=== PATIENT | female | born 1980 | race Two or more races ===

== ENCOUNTER 2019-04-11 22:23 | Emergency (ER) | payer SELFPAY ==
[2019-04-11 22:30] VITALS: RESP 18
[2019-04-12 00:18] LABS: BASO # 0.02 K/mm3 (0.0-2.0); BASO % 0.2 % (0.0-3.0); EOS # 0.2 (0.0-0.7); EOS % 1.3 % (1.5-5.0); HEMOGLOBIN 13.2 g/dL (12.0-16.0); LYMPH # 2.6 (1.2-3.4); LYMPH % 22.3 % (22.0-35.0); MEAN CORPUSCULAR HEMOGLOBIN 27.9 pg (25.0-35.0); MEAN PLATELET VOLUME 10.3 fl (7.0-11.0); MONO # 0.4 (0.1-0.6); MONO % 3.1 % (1.0-6.0); RBC 4.73 10^6/uL (3.5-6.1); RED CELL DISTRIBUTION WIDTH 15.3 % (11.5-14.5); WHITE BLOOD COUNT 11.7 10^3/uL (4.5-11.0)
[2019-04-12 00:18] LABS: PH,URINE 6.5 (4.7-8.0); URINE BILIRUBIN NEGATIVE (NEGATIVE); URINE BLOOD NEGATIVE (NEGATIVE); URINE GLUCOSE (UA) 250 mg/dL (NEGATIVE); URINE LEUKOCYTE ESTERASE MODERATE Leu/uL (NEGATIVE); URINE PROTEIN NEGATIVE mg/dL (<30 mg/dL); URINE UROBILINOGEN 0.2 E.U./dL (<1 E.U./dL)
[2019-04-12 00:20] LABS: URINE APPEARANCE SL CLOUDY (CLEAR); URINE COLOR STRAW (YELLOW)
[2019-04-12 00:29] LABS: ACETAMINOPHEN < 10.0 ug/ml (10.0-20.0); SALICYLATE < 1 mg/dL (2.0-20.0)
[2019-04-12 00:31] LABS: ALB/GLOB RATIO 1.3 (1.1-1.8); ALBUMIN 4.2 g/dL (3.0-4.8); ALT/SGPT 29 U/L (7-56); AST/SGOT 19 U/L (14-36); BLOOD UREA NITROGEN 12 mg/dL (7-21); CALCIUM 9.4 mg/dL (8.4-10.5); GFR NON-AFRICAN AMERICAN > 60
[2019-04-12 00:33] LABS: URINE BACTERIA RARE /hpf; URINE EPITHELIAL CELLS 0 - 2 /hpf (0-5); URINE RBC 0 - 2 /hpf (0-2)
[2019-04-12 00:54] LABS: BARBITURATES, UR NEGATIVE (NEGATIVE); BENZODIAZEPINES, UR NEGATIVE (NEGATIVE); OPIATES, UR NEGATIVE (NEGATIVE); PHENCYCLIDINE, UR NEGATIVE (NEGATIVE)
--- NOTE | 2019-04-12 01:19 | ED PDOC ---
Arrival/HPI - General Historian: Patient - History of Present Illness Narrative History of Present Illness (Text): 04/12/19 01:17 39yo female with no past medical history bib the EMS with complaint of suprapubic abdominal pain, dysuria, urinary frequency, nausea, vomiting since this evening. Denies fever, chills, back pain, chest pain, any other complaint. <Marco A Muñoz A - Last Filed: 04/12/19 01:48> <Karl Mao - Last Filed: 04/12/19 01:56> - General Chief Complaint: Psychiatric Evaluation Past Medical History - Provider Review Nursing Documentation Reviewed: Yes KATY Report Viewed: Yes - Travel History Have you recently traveled outside [place] w/in the past 3 mons?: No - Reproductive Menopause: No Currently : No - Past Medical History Past Medical History: Non-Contributing - Psychiatric Hx Substance Use: Yes <Marco A Muñoz A - Last Filed: 04/12/19 01:48> Family/Social History - Physician Review Nursing Documentation Reviewed: Yes Family/Social History: Unknown Family HX Smoking Status: Unknown If Ever Smoked Hx Alcohol Use: Yes Frequency of alcohol use: Socially Hx Substance Use: Yes Substance used: "dope" <Marco A Muñoz A - Last Filed: 04/12/19 01:48> Allergies/Home Meds <Marco A Muñoz A - Last Filed: 04/12/19 01:48> <Karl Mao - Last Filed: 04/12/19 01:56> Allergies/Adverse Reactions: Allergies Unobtainable Allergy (Verified 04/11/19 22:24) Review of Systems - Physician Review All systems were reviewed & negative as marked: Yes - Review of Systems Constitutional: Normal Eyes: Normal ENT: Normal Respiratory: Normal Cardiovascular: Normal Gastrointestinal: Abdominal Pain, Nausea, Vomiting. absent: Constipation, Diarrhea, Hematochezia, Hematemesis Genitourinary Female: Dysuria, Frequency Musculoskeletal: Normal Skin: Normal Neurological: Normal Endocrine: Normal Hemo/Lymphatic: Normal Psychiatric: Normal <Marco A Muñoz A - Last Filed: 04/12/19 01:48> Physical Exam Vital Signs Reviewed: Yes Vital Signs Temp Pulse Resp BP Pulse Ox 04/11/19 22:25 98.4 F 111 H 18 160/83 H 99 Temperature: Afebrile Blood Pressure: Normal Pulse: Tachycardic Respiratory Rate: Normal Appearance: Positive for: Well-Appearing, Non-Toxic, Comfortable Pain Distress: None Mental Status: Positive for: Alert and Oriented X 3 - Systems Exam Head: Present: Atraumatic, Normocephalic Pupils: Present: PERRL Extroacular Muscles: Present: EOMI Conjunctiva: Present: Normal Mouth: Present: Moist Mucous Membranes Neck: Present: Normal Range of Motion Respiratory/Chest: Present: Clear to Auscultation, Good Air Exchange. No: Respiratory Distress, Accessory Muscle Use Cardiovascular: Present: Regular Rate and Rhythm, Normal S1, S2. No: Murmurs Abdomen: Present: Tenderness (Suprapubic tenderness), Normal Bowel Sounds, Other (Soft). No: Distention, Peritoneal Signs, Rebound, Guarding, McBurney's Point Tender, Rovsing's Sign Present Back: Present: Normal Inspection Upper Extremity: Present: Normal Inspection. No: Cyanosis, Edema Lower Extremity: Present: Normal Inspection. No: Edema Neurological: Present: GCS=15, CN II-XII Intact, Speech Normal Skin: Present: Warm, Dry, Normal Color. No: Rashes Psychiatric: Present: Alert, Oriented x 3, Normal Insight, Normal Concentration <Diru,Happiness A - Last Filed: 04/12/19 01:48> Vital Signs Temp Pulse Resp BP Pulse Ox 04/12/19 01:45 98.0 F 90 18 138/67 100 04/11/19 22:25 98.4 F 111 H 18 160/83 H 99 <Karl Mao - Last Filed: 04/12/19 01:56> Medical Decision Making ED Course and Treatment: 04/12/19 01:46 Pt presented for stated history. She was AO x3 in ED. Stable and in no distress. She reported urinary symptoms. Labs was unremarkable. She have UTI and was treed with keflex. Referred to her PMD - Lab Interpretations Lab Results: Total Bilirubin 0.5 mg/dL (0.2-1.3) 04/11/19 23:50 AST 19 U/L (14-36) 04/11/19 23:50 ALT 29 U/L (7-56) 04/11/19 23:50 Alkaline Phosphatase 69 U/L (38-126) 04/11/19 23:50 Total Protein 7.6 g/dL (5.8-8.3) 04/11/19 23:50 Albumin 4.2 g/dL (3.0-4.8) 04/11/19 23:50 Globulin 3.4 gm/dL 04/11/19 23:50 Albumin/Globulin Ratio 1.3 (1.1-1.8) 04/11/19 23:50 Urine Color Straw (YELLOW) 04/11/19 23:43 Urine Appearance Sl cloudy (CLEAR) 04/11/19 23:43 Urine pH 6.5 (4.7-8.0) 04/11/19 23:43 Ur Specific [place] 1.010 (1.005-1.035) 04/11/19 23:43 Urine Protein Negative mg/dL (<30 mg/dL) 04/11/19 23:43 Urine Glucose (UA) 250 mg/dL (NEGATIVE) H 04/11/19 23:43 Urine Ketones Negative mg/dL (NEGATIVE) 04/11/19 23:43 Urine Blood Negative (NEGATIVE) 04/11/19 23:43 Urine Nitrate Negative (NEGATIVE) 04/11/19 23:43 Urine Bilirubin Negative (NEGATIVE) 04/11/19 23:43 Urine Urobilinogen 0.2 E.U./dL (<1 E.U./dL) 04/11/19 23:43 Ur Leukocyte Esterase Moderate Mikhail/uL (NEGATIVE) H 04/11/19 23:43 Urine RBC 0 - 2 /hpf (0-2) 04/11/19 23:43 Urine WBC 1 - 3 /hpf (0-6) 04/11/19 23:43 Ur Epithelial Cells 0 - 2 /hpf (0-5) 04/11/19 23:43 Urine Bacteria Rare /hpf (NONE) 04/11/19 23:43 <Diru,Happiness A - Last Filed: 04/12/19 01:48> - Lab Interpretations Lab Results: Total Bilirubin 0.5 mg/dL (0.2-1.3) 04/11/19 23:50 AST 19 U/L (14-36) 04/11/19 23:50 ALT 29 U/L (7-56) 04/11/19 23:50 Alkaline Phosphatase 69 U/L (38-126) 04/11/19 23:50 Total Protein 7.6 g/dL (5.8-8.3) 04/11/19 23:50 Albumin 4.2 g/dL (3.0-4.8) 04/11/19 23:50 Globulin 3.4 gm/dL 04/11/19 23:50 Albumin/Globulin Ratio 1.3 (1.1-1.8) 04/11/19 23:50 Urine Color Straw (YELLOW) 04/11/19 23:43 Urine Appearance Sl cloudy (CLEAR) 04/11/19 23:43 Urine pH 6.5 (4.7-8.0) 04/11/19 23:43 Ur Specific [place] 1.010 (1.005-1.035) 04/11/19 23:43 Urine Protein Negative mg/dL (<30 mg/dL) 04/11/19 23:43 Urine Glucose (UA) 250 mg/dL (NEGATIVE) H 04/11/19 23:43 Urine Ketones Negative mg/dL (NEGATIVE) 04/11/19 23:43 Urine Blood Negative (NEGATIVE) 04/11/19 23:43 Urine Nitrate Negative (NEGATIVE) 04/11/19 23:43 Urine Bilirubin Negative (NEGATIVE) 04/11/19 23:43 Urine Urobilinogen 0.2 E.U./dL (<1 E.U./dL) 04/11/19 23:43 Ur Leukocyte Esterase Moderate Mikhail/uL (NEGATIVE) H 04/11/19 23:43 Urine RBC 0 - 2 /hpf (0-2) 04/11/19 23:43 Urine WBC 1 - 3 /hpf (0-6) 04/11/19 23:43 Ur Epithelial Cells 0 - 2 /hpf (0-5) 04/11/19 23:43 Urine Bacteria Rare /hpf (NONE) 04/11/19 23:43 - Medication Orders Current Medication Orders: Discontinued Medications Cephalexin Monohydrate (Keflex) 500 mg PO STAT STA; Protocol Stop: 04/12/19 01:17 Last Admin: 04/12/19 01:44 Dose: 500 mg Ondansetron HCl (Zofran Odt) 4 mg PO STAT STA Stop: 04/12/19 01:18 Last Admin: 04/12/19 01:44 Dose: 4 mg <Karl Mao - Last Filed: 04/12/19 01:56> - PA / [employer] / Resident Statement / has reviewed & agrees with the documentation as recorded. <Karl Mao - Last Filed: 04/12/19 01:56> Disposition/Present on Arrival - Present on Arrival Any Indicators Present on Arrival: No History of DVT/PE: No History of Uncontrolled Diabetes: No Urinary Catheter: No History of Decub. Ulcer: No History Surgical Site Infection Following: None - Disposition Have Diagnosis and Disposition been Completed?: Yes Disposition Time: 13:20 Patient Plan: Discharge <Marco A Muñoz - Last Filed: 04/12/19 01:48> <Karl Mao - Last Filed: 04/12/19 01:56> - Disposition Diagnosis: UTI (urinary tract infection) Disposition: HOME/ ROUTINE Condition: STABLE Discharge Instructions (ExitCare): Urinary Tract Infections in Adults Additional Instructions: Drink plenty of fluid Follow up with your doctor Return to ED for any new or worsening symptoms Prescriptions: Cephalexin [cephalexin] 500 mg PO TID #21 cap Ondansetron ODT [Zofran ODT] 4 mg PO Q6 #5 odt Phenazopyridine [Pyridium] 200 mg PO PC #6 tab Referrals: [facility] [place] [Outside] - Follow up with primary Forms: [employer] (Al[place]ian)
[2019-04-12 01:46] VITALS: BP 138/67; PULSE 90; TEMP 98; O2SAT 100
== END 2019-04-12 02:13 | disposition home or self-care (01) ==
LOC: ED 22:23
DX: N39.0 Urinary tract infection, site not specified (principal)
CPT/HCPCS: 80053; 81001; 81025; 83735; 85025; 87086; 99283; G0480